=== PATIENT | female | born 1950 | race Caucasian/White ===

== ENCOUNTER 2018-04-05 21:35 | Inpatient (IN) | payer OTHER, MEDICAID ==
[~2018-04-05] VITALS: Ht 154.9 cm; Wt 74.2 kg
[2018-04-05 23:43] LABS: BASOPHIL % 0.3 % (0-2); RED CELL DISTRIBUTION WIDTH 13.2 % (11.5-14.5)
[2018-04-05 23:48] LABS: CALCIUM 9.2 mg/dL (8.5-10.1); CARBON DIOXIDE 24.6 mmol/L (21-32); CHLORIDE SERUM 102 mmol/L (98-107); CREATININE SERUM 0.8 mg/dL (0.6-1.0); GFR1 > 60 mL/min; GLUCOSE SERUM 148 mg/dL (74-106); POTASSIUM SERUM 3.5 mmol/L (3.5-5.1); SODIUM SERUM 139 mmol/L (136-145)
[2018-04-05 23:55] LABS: ALBUMIN 3.8 g/dL (3.4-5.0); ALKALINE PHOSPHATASE 63 U/L (46-116); ALT/SGPT 28 U/L (14-59); AST/SGOT 29 U/L (15-37); BILIRUBIN TOTAL 0.8 mg/dL (0.20-1.00); LIPASE 96 IU/L (73-393); TOTAL PROTEIN, SERUM 8.1 g/dL (6.4-8.2)
[2018-04-05 23:57] LABS: PLATELET COUNT 3 x10^3mcL (130-400)
[2018-04-06 01:34] VITALS: BP 119/71
[2018-04-06 02:03] LABS: T3 TOTAL 0.77 ng/mL
[2018-04-06 02:54] LABS: CHOLESTEROL/HDL RATIO 3.8; FREE T4 1.09 ng/dL (0.76-1.46); FREE THYROXINE INDEX 2.7 ug/dL (1.4-4.5); MAGNESIUM 2.2 mg/dL (1.8-2.4); PHOSPHOROUS 2.7 mg/dL (2.5-4.9); T4(THYROXINE) 8.6 ug/dL (4.7-13.3)
[2018-04-06 04:37] VITALS: BP 110/71
[2018-04-06 05:12] LABS: RED BLOOD CELLS 2.78 M/mm3 (4.10-5.10); RED CELL DISTRIBUTION WIDTH 13.1 % (11.5-14.5)
[2018-04-06 05:15] LABS: PLATELET COUNT 2 x10^3mcL (130-400)
[2018-04-06 05:20] LABS: IRON 23 ug/dL (50-170); TOTAL IRON BINDING CAPACITY 183 ug/dL (250-450)
[2018-04-06 05:39] LABS: BASOPHIL % 0.4 % (0-2); RED CELL DISTRIBUTION WIDTH 13.4 % (11.5-14.5)
[2018-04-06 06:27] VITALS: BP 138/75
[2018-04-06 06:31] LABS: PLATELET COUNT 6 x10^3mcL (130-400)
[2018-04-06 06:33] LABS: BAND NEUTROPHIL 1 % (0-10); MONOCYTE 9 % (0-7); SEGMENTED NEUTROPHILS 74 % (37-75)
[2018-04-06 06:34] LABS: PLATELET MORPHOLOGY PLATELETS DECREASED; rbc morphology (normal/abnorm) NORMAL (NORMAL)
== END 2018-04-06 07:58 | disposition short-term general hospital (02) | DRG 813 ==
LOC: ED 21:35 → DU 04-06 00:55 → IC 04-06 04:24
PROVIDERS: Emergency Medicine; Family Medicine
PROC: 30233R1 Transfusion of Nonautologous Platelets into Peripheral Vein, Percutaneous Approach (ICD-10-PCS; principal; 2018-04-06)
DX: D69.6 Thrombocytopenia, unspecified (principal); I60.8 Other nontraumatic subarachnoid hemorrhage; N17.0 Acute kidney failure with tubular necrosis; R04.2 Hemoptysis; E86.0 Dehydration; D64.9 Anemia, unspecified; Z60.2 Problems related to living alone; Z88.0 Allergy status to penicillin
CPT/HCPCS: 83880; 84439; 85378; C9113; J1200; J1885; J2405; J2765; J7030; J7050; P9035; Q0163